=== PATIENT | male | born 1990 | race African-American/Black ===

== ENCOUNTER 2021-03-01 00:16 | Emergency (ER) | payer MEDICARE, OTHER ==
--- NOTE | 2021-03-01 01:25 | EDM.PDOC ---
ED HPI GENERAL MEDICAL PROBLEM - General Chief Complaint: ENT Problem Stated Complaint: LT EAR INFECTION Time Seen by Provider: 03/01/21 01:09 Source of Information: Reports: Patient, Significant Other (Girlfriend) History Limitations: Reports: No Limitations - History of Present Illness INITIAL COMMENTS - FREE TEXT/NARRATIVE: Mr. Sahu is a very pleasant 30-year-old gentleman who now presents to the ED stating that he has had left ear pain for the past 5 days. He denies having a sore throat. No recent fever. The patient states that he had similar pain due to an ear infection as a child, however, he has not had a problem since. The patient has been instilling all of oil with garlic, and [id number] ear infection drops, and tree oil into his left ear. He has also been taking Aleve and applying a heating pad. Here in the ED, the patient is found to be hemodynamically stable, afebrile, saturating 98% on room air. He is sleepy, in fact asleep on me at one point. He does not appear to be in any acute distress. Prior to 5 days ago, the patient denies having a recent fever, chills, sore throat, ear pain, nasal or sinus congestion, cough, dyspnea, chest pain, palpitations, nausea, vomiting, constipation, diarrhea, abdominal pain, urinary symptoms, recent weight gain or weight loss, recent bloody bowel movements or black bowel movements, recent joint aches, headaches, or rashes. The patient does not have a PCP. He has received a single J&J COVID vaccination. Left Ear Pain Score (Numeric/FACES): 9 - Related Data Allergies Allergy/AdvReac Type Severity Reaction Status Date / Time No Known Allergies Allergy Verified 03/01/21 00:37 Home Meds: Home Meds . [No Known Home Meds] 03/01/21 [History] Past Medical History Endocrine/Metabolic History: Reports: Hypothyroidism (untreated) - Past Surgical History HEENT Surgical History: Reports: Oral Surgery (dental extractions and implants) Social & Family History - Tobacco Use Tobacco Use Status *Q: Current Every Day Tobacco User Years of Tobacco use: 8 Packs/Tins Daily: 0.5 Tobacco Use Comment: Started smoking 2011 - Caffeine Use Caffeine Use: Reports: None - Alcohol Use Alcohol Use History: Yes Alcohol Use Frequency: Socially - Recreational Drug Use Recreational Drug Use: Yes Drug Use in Last 12 Months: Yes Recreational Drug Type: Reports: Marijuana/Hashish (smokes once or twice daily) - Living Situation & Occupation Living situation: Reports: , with Significant Other (Girlfriend) Occupation: Unemployed ED ROS ENT - Review of Systems Review Of Systems: Comprehensive ROS is negative, except as noted in HPI. ED EXAM, ENT - Physical Exam Exam: See Below Exam Limited By: No Limitations General Appearance: WD/WN, No Apparent Distress, Other (Sleepy) Eye Exam: Bilateral Eye: EOMI, Normal Inspection Ears: Normal External Exam (bilateral), Hearing Grossly Normal, Canal Material (left blocked by soft-appearing cerumen) Nose: Normal Inspection, Normal Mucousa, No Blood Mouth/Throat: Normal Inspection, Normal Gums, Normal Lips, Normal Oropharynx, Normal Teeth Head: Atraumatic, Normocephalic Neck: Normal Inspection, Supple, Non-Tender, Full Range of Motion. No: Lymphadenopathy (L), Lymphadenopathy (R) Course - Vital Signs Last Recorded V/S: Last Vital Signs Temp 36.7 C 03/01/21 00:36 Pulse 85 03/01/21 00:36 Resp 18 03/01/21 00:36 BP 129/79 03/01/21 00:36 Pulse Ox 98 03/01/21 00:36 - Re-Assessments/Exams Free Text/Narrative Re-Assessment/Exam: 03/01/21 01:22 The patient's right external auditory canal and TM look normal, but his left external auditory canal is blocked by soft-appearing cerumen. I am unable to see any of his left TM. Ana CISNEROS will irrigate the canal to see if she can dislodge the cerumen. 03/01/21 01:34 Ana CISNEROS was able to irrigate out a very large piece of cerumen. On examination of the patient's left ear following the irrigation, he appears to have a relatively mild case of otitis externa. The tympanic membrane is slightly bulging, but not erythematous. There does not appear to be an otitis media. The patient will be discharged home with an [facility] prescription for Cortispor in otic. He may take OTC ibuprofen or Aleve as needed for discomfort. Departure - Departure Time of Disposition: 01:36 Disposition: Home, Self-Care 01 Condition: Good Clinical Impression: Left otitis externa, Impacted cerumen of left ear - Discharge Information *PRESCRIPTION DRUG MONITORING PROGRAM REVIEWED*: Not Applicable *COPY OF PRESCRIPTION DRUG MONITORING REPORT IN PATIENT YUKO: Not Applicable Referrals: PCP,None [Primary Care Provider] - Lucille Michel NP [Nurse Practitioner] - Forms: ED Department Discharge Additional Instructions: You were seen in the emergency room for 5 days of left ear pain. On examination, you had a large piece of earwax stuck in your left ear canal. It was irrigated out. On examination after the earwax was removed, you have a mild infection of your left ear canal = otitis externa. A prescription for Cortisporin otic has been provided to you via [facility]. Instill 4 drops into your left ear 3 or 4 times a day, for 5 days. You may take [id number] ibuprofen or Aleve as needed for discomfort. If you continue to have left ear pain after 5 days, please follow-up with Lucille Michel NP, or one of the other providers in the clinic, for reevaluation. If any other problems, please do not hesitate to return to the ER. Sepsis Event Note (ED) - Evaluation Sepsis Screening Result: No Definite Risk - Focused Exam Vital Signs: Vital Signs Temp Pulse Resp BP Pulse Ox 03/01/21 00:36 36.7 C 85 18 129/79 98
== END 2021-03-01 01:58 | disposition home or self-care (01) ==
LOC: JD.ED 00:16
DX: H60.92 Unspecified otitis externa, left ear (principal); H61.22 Impacted cerumen, left ear; F17.210 Nicotine dependence, cigarettes, uncomplicated
CPT/HCPCS: 99282